=== PATIENT | male | born 1985 | race Caucasian/White ===

== ENCOUNTER 2017-04-03 18:20 | Emergency (ER) | payer SELFPAY ==
[~2017-04-03] VITALS: Ht 165.1 cm; Wt 60.0 kg
[2017-04-03 18:22] VITALS: BP 131/70
[2017-04-03] MEDS ORDERED: SODIUM CHLORIDE 0.9% 1,000 ML IV ONE (18:38)
== END 2017-04-03 20:00 | disposition left against medical advice (07) ==
LOC: ER 19:11
DX: T18.9XXA Foreign body of alimentary tract, part unspecified, initial encounter (principal); F15.10 Other stimulant abuse, uncomplicated; F11.10 Opioid abuse, uncomplicated; R00.0 Tachycardia, unspecified; Y93.89 Activity, other specified; Y92.098 Other place in other non-institutional residence as the place of occurrence of the external cause; X58.XXXA Exposure to other specified factors, initial encounter
CPT/HCPCS: 93005; 99283; J7030